=== PATIENT | female | born 1975 | race Caucasian/White ===

== ENCOUNTER → 2016-08-16 | Outpatient (CLI) | payer MEDICARE ==
[2016-08-16 11:11] LABS: CH 30.6; CHCM 32.7; HCT 43.8 % (34.0-46.0); HDW 2.21; HGB 13.9 gm/dL (11.4-16.0); MCH 29.9 pg (25.0-35.0); MCHC 31.8 g/dL (31.0-37.0); MCV 93.8 fL (80.0-100.0); Mean Platelet Volume 7.9; RBC 4.67 m/uL (3.80-5.40); RDW 12.3 % (11.5-15.5); WBC 6.7 k/uL (3.8-10.6)
[2016-08-16 11:31] LABS: ALT 29 U/L (9-52); AST 23 U/L (14-36); Alkaline Phosphatase 49 U/L (38-126); Anion Gap 10 mmol/L; Blood Urea Nitrogen 17 mg/dL (7-17); Calcium 9.1 mg/dL (8.4-10.2); Carbon Dioxide 28 mmol/L (22-30); Chloride 105 mmol/L (98-107); Cholesterol 201 mg/dL (<200); Glucose 92 mg/dL (74-99); HDL Cholesterol 67 mg/dL (40-60); Non-African American GFR(MDRD) >60 (>60 ml/min/1.73 sqM); Potassium 4.8 mmol/L (3.5-5.1); Sodium 143 mmol/L (137-145); Total Bilirubin 0.5 mg/dL (0.2-1.3); Total Protein 6.7 g/dL (6.3-8.2); Triglycerides 58 mg/dL (<150)
== END | disposition home or self-care (01) ==
LOC: LABWHC1 10:38
PROVIDERS: ATTEND Internal Medicine
DX: Z13.220 Encounter for screening for lipoid disorders (principal); Z13.29 Encounter for screening for other suspected endocrine disorder
CPT/HCPCS: 36415; 80053; 80061; 84439; 84443; 85027

== ENCOUNTER 2020-05-17 21:06 | Emergency (ER) | payer MEDICARE ==
[2020-05-17 21:17] VITALS: RESP 16; TEMP 98.9
[2020-05-17] MEDS ORDERED: LORazepam 2 MG/ML INJ IV STA (21:27)
[2020-05-17] MEDS ORDERED: SODIUM CHLORIDE 0.9% 1,000 ML IV ONE (21:27)
[2020-05-17 22:00] LABS: Amphetamine Screen,Urine Not Detected (NotDetected); Barbiturate Screen,Urine Not Detected (NotDetected); Benzodiazepines Screen,Urine Not Detected (NotDetected); Cocaine Screen,Urine Not Detected (NotDetected); Methadone Screen, Urine Not Detected (NotDetected); Opiate Screen,Urine Not Detected (NotDetected); Oxycodone Screen, Urine Not Detected (NotDetected); Phencyclidine Screen,Urine Not Detected (NotDetected); Tricyclic Antidepressant,Urine Not Detected (NotDetected); Urn Cannabinoid Scrn Detected (NotDetected)
--- NOTE | 2020-05-17 22:00 | ED ---
General Adult HPI - General Source: patient, EMS, RN notes reviewed, old records reviewed Mode of arrival: EMS Limitations: no limitations <Juan Stanley - Last Filed: 05/17/20 22:10> <Nadine Boone - Last Filed: 05/20/20 15:45> - General Chief complaint: Anxiety Stated complaint: anxiety Time Seen by Provider: 05/17/20 21:19 - History of Present Illness Initial comments: 44 year old female patient presented for anxiety. Patient reports that she ate two marijuanna laced brownies at 6 PM. States that since then she has been feeling very anxious and she had a little bit of nausea and vomiting earlier. Denies any other acute complaints this time. Systemic: Pt denies fatigue, fever/chills, rash. Pt denies weakness, night sweats, weight loss. Neuro: Pt denies headache, visual disturbances, syncope or pre-syncope. HEENT: Pt denies ocular discharge or irritation, otalgia, rhinorrhea, phar yngitis or notable lymphadenopathy. Cardiopulmonary: Pt denies chest pain, SOB, heart palpitations, dyspnea on exertion. Abdominal/GI: Pt denies abdominal pain, n/v/d. : Pt denies dysuria, burning w/ urination, frequency/urgency. Denies new onset urinary or bowel incontinence. MSK: Pt denies myalgia, loss of strength or function in extremities. Neuro: Pt denies new onset weakness, paresthesias. (Juan Stanley) - Related Data Home Medications Medication Instructions Recorded Confirmed Citalopram Hydrobromide [CeleXA] 40 mg PO DAILY 11/26/15 11/30/15 Multivitamins, Pediatric Chew 1 tab PO DAILY 11/26/15 11/30/15 [Poly--Noreen Chew] buPROPion HCL [Wellbutrin XL] 300 mg PO DAILY 11/26/15 11/30/15 Previous Rx's Medication Instructions Recorded Ibuprofen [Motrin] 600 mg PO Q6HR PRN #30 tab 11/30/15 Allergies Allergy/AdvReac Type Severity Reaction Status Date / Time No Known Allergies Allergy Verified 11/30/15 06:44 Review of Systems ROS Other: All systems not noted in ROS Statement are negative. <Juan Stanley - Last Filed: 05/17/20 22:10> ROS Other: All systems not noted in ROS Statement are negative. <Nadine Boone - Last Filed: 05/20/20 15:45> ROS Statement: Those systems with pertinent positive or pertinent negative responses have been documented in the HPI. Past Medical History Past Medical History: No Reported History Past Surgical History: Appendectomy Past Psychological History: Anxiety, Bipolar, Depression Smoking Status: Never smoker Past Alcohol Use History: Occasional Past Drug Use History: Marijuana <Juan Stanley - Last Filed: 05/17/20 22:10> General Exam Limitations: no limitations <Juan Stanley - Last Filed: 05/17/20 22:10> - General Exam Comments Initial Comments: Constitutional: NAD, AOX3, Pt has pleasant affect. HEENT: NC/AT, trachea midline, neck supple, no lymphadenopathy. External ears appear normal, without discharge. Mucous membranes moist. Eyes PERRLA, EOM intact. There is no scleral icterus. No pallor noted. Cardiopulmonary: RRR, no murmurs, rubs or gallops, no JVD noted. Lungs CTAB in anterior and posterior rosales. No peripheral edema. Abdominal exam: Abdomen soft and non-distended. Abdomen non-tender to palpation in all 4 quadrants. Bowel sounds active in LLQ. No hepatosplenomegaly. No ecchymosis Neuro: CN II-XII grossly intact. No nuchal rigidity. MSK: Full active ROM in upper and lower extremities, 5/5 stregnth. (Juan Stanley) Course Vital Signs 05/17/20 05/17/20 21:12 22:34 Temperature 98.9 F Pulse Rate 102 H 98 Respiratory 16 16 Rate Blood Pressure 125/86 127/75 O2 Sat by Pulse 97 97 Oximetry Medical Decision Making - EKG Data -: EKG Interpreted by Me (and Dr. Boone ) <Juan Stanley - Last Filed: 05/17/20 22:10> <Nadine Boone - Last Filed: 05/20/20 15:45> - Medical Decision Making 44-year-old female patient presented to ED for evaluation of anxiety after eating marijuana brownies. Denies any other current complaints. Patient was administered fluids and Ativan is feeling much improved. requesting discharge. Sisters with patient and will watch her. Patient advised to avoid any drugs in the future. Case discussed with Dr. Boone. (Juan Stanley) I was available for consultation in the emergency department. The history and physical exam were done by the midlevel provider. I was consulted for this patients care. I reviewed the case with the midlevel provider and based on their presentation of the patient, I agree with the assessment, medical decision making and plan of care as documented. Chart was dictated using ibeatyou dictation software. Attempts were made to correct any dictation errors however some typographical errors may persist. (Nadine Boone) - Lab Data Lab Results 05/17/20 05/17/20 Range/Units 21:35 21:35 Urine HCG, Qual Not Detected (Not Detectd) Urine Opiates Screen Not Detected (NotDetected) Ur Oxycodone Screen Not Detected (NotDetected) Urine Methadone Screen Not Detected (NotDetected) Ur Propoxyphene Screen Not Detected (NotDetected) Ur Barbiturates Screen Not Detected (NotDetected) U Tricyclic Antidepress Not Detected (NotDetected) Ur Phencyclidine Scrn Not Detected (NotDetected) Ur Amphetamines Screen Not Detected (NotDetected) U Methamphetamines Scrn Not Detected (NotDetected) U Benzodiazepines Scrn Not Detected (NotDetected) Urine Cocaine Screen Not Detected (NotDetected) U Marijuana (THC) Screen Detected H (NotDetected) - EKG Data EKG Comments: Ventricular rate 99, W[place] interval 184, QRS 94, QT/QTC 372/477. Normal sinus rhythm, normal EKG, no concern for acute ischemia. (Juan Stanley) Disposition Is patient prescribed a controlled substance at d/c from ED?: No <Juan Stanley - Last Filed: 05/17/20 22:10> <Nadine Boone - Last Filed: 05/20/20 15:45> Clinical Impression: Marijuana abuse, Anxiety Disposition: HOME SELF-CARE Condition: Stable Instructions (If sedation given, give patient instructions): Generalized Anxiety Disorder (ED) Additional Instructions: avoid all drugs in the future. Follow up with primary care provider tomorrow. Return to ER if any worsening symptoms. Referrals: Anita Eric MD [Primary Care Provider] - 1-2 days
[2020-05-17 22:35] VITALS: BP 127/75; PULSE 98
== END 2020-05-17 22:30 | disposition home or self-care (01) ==
LOC: EC 21:06
DX: F12.10 Cannabis abuse, uncomplicated (principal); F31.9 Bipolar disorder, unspecified; Z79.899 Other long term (current) drug therapy; Z90.49 Acquired absence of other specified parts of digestive tract
CPT/HCPCS: 93005; 81025; 80306; 99284; 96374; 96361; J2060

== ENCOUNTER → 2020-08-26 | Outpatient (CLI) | payer MEDICARE ==
--- NOTE | 2020-08-26 13:22 | MR ---
EXAMINATION TYPE: MR knee RT wo con DATE OF EXAM: 08/26/2020 COMPARISON: Outside radiograph 07/29/2020 HISTORY: 45-year-old female Right knee pain TECHNIQUE: Multiplanar, multisequence imaging of the right knee is performed without IV contrast. FINDINGS: There is increased signal along the ACL. Intact fibers are visualized. There may be a partial tear al marco the proximal half fibers, refer to coronal image 18. PCL, MCL, LCL complex are intact. Medial meniscus is intact. Overall medial compartment articular cartilage volume is maintained. There is abnormal signal within the anterior horn of the lateral meniscus with an adjacent 6 mm jacoby eniscal cyst, coronal image 11 and sagittal image 18. Lateral compartment articular cartilage volume is maintained. Mild thinning of the patellofemoral compartment articular cartilage without any focal cartilage defec ts. Extensor mechanism is intact. Trace joint effusion. Trace fluid seen extending between the semimembra nosus and medial head gastrocnemius compatible with trace early Mendez's cyst formation. Normal popliteal artery anatomy in muscle bulk. No suspicious bone marrow replacement. IMPRESSION: 1. Tear anterior horn lateral meniscus near the anterior root with a 6 mm adjacent parameniscal cyst. 2. Possible partial tear along the proximal half of the ACL fibers. No ACL rupture. 3. Trace early Mendez's cyst formation.
== END | disposition home or self-care (01) ==
LOC: RADMRIMAIN 11:11
PROVIDERS: ATTEND Orthopaedic Surgery
DX: S83.281A Other tear of lateral meniscus, current injury, right knee, initial encounter (principal)

== ENCOUNTER → 2020-09-17 | Outpatient (CLI) | payer MEDICARE ==
[2020-09-17 11:58] LABS: Potassium 4.1 mmol/L (3.5-5.1)
[2020-09-17 12:09] LABS: Basophils # (A) 0.1 k/uL (0-0.2); Basophils % (A) 1 %; Eosinophils # (A) 0.1 k/uL (0-0.7); Eosinophils % (A) 2 %; HCT 41.7 % (34.0-46.0); HGB 13.4 gm/dL (11.4-16.0); Lymphocytes # (A) 1.8 k/uL (1.0-4.8); Lymphocytes % (A) 25 %; MCH 30.1 pg (25.0-35.0); MCHC 32.1 g/dL (31.0-37.0); Mean Platelet Volume 9.1; Monocytes # (A) 0.2 k/uL (0-1.0); Monocytes % (A) 3 %; Neutrophils # (A) 4.8 k/uL (1.3-7.7); Neutrophils % (A) 68 %; Platelet Count 167 k/uL (150-450); RBC 4.43 m/uL (3.80-5.40); RDW 12.8 % (11.5-15.5)
== END | disposition home or self-care (01) ==
LOC: LABPAT 10:45
PROVIDERS: ATTEND Orthopaedic Surgery
DX: M23.91 Unspecified internal derangement of right knee (principal)
CPT/HCPCS: 36415; 80051; 85025

== ENCOUNTER 2020-09-30 09:37 | Day surgery (SDC) | payer MEDICARE ==
[2020-09-28 15:19] VITALS: BMI 25.5
--- NOTE | 2020-09-29 14:54 | HP ---
HISTORY AND PHYSICAL Surgery is scheduled for 09/30/2020 Rajni Martinez is a 45-year-old patient seen with progressive right knee pain. Options were discussed for treatment. She elected to proceed with arthroscopy. Consent was obtained. PAST MEDICAL HISTORY: Anxiety. PAST SURGICAL HISTORY: Noncontributory. DAILY MEDICATIONS: Wellbutrin. ALLERGIES: None. SOCIAL HISTORY: Denies tobacco use. PHYSICAL EVALUATION OF THE RIGHT KNEE: Range of motion is 0-120. Mild effusion. There is tenderness along the medial and lateral joint lines. Positive medial Ankit's. Positive lateral Ankit's. Her ligaments appear stable. Distal neurovascular exam is intact. Radiographs of the right knee reveal mild osteoarthritic changes. Right knee MRI revealed lateral meniscal tear and partial ACL tear. IMPRESSION: Internal derangement, right knee with lateral meniscal tear and partial ACL tear. PLAN: Right knee arthroscopy with partial meniscectomy and debridement. MMODL / IJN: [id number] /
[~2020-09-30 09:37] MED LIST: DEXAMETHASONE SOD PHOSPHATE 4 MG/ML 1 ML VIAL IV PRN; LACTATED RINGERS 1,000 ML IV SCH; LIDOCAINE 1% (10MG/ML) FOR IV START INTRADERMA PRN; ONDANSETRON 4 MG/2 ML VIAL IVP PRN
[2020-09-30] MEDS ORDERED: ONDANSETRON 4 MG/2 ML VIAL ONE (10:10)
[2020-09-30] MEDS ORDERED: BUPIVACAINE (PF) 0.25% 30 ML VIAL SQ ONE (11:59)
[2020-09-30] MEDS ORDERED: SUCCINYLCHOLINE CHLORIDE 100 MG/5 ML SYR IV ONE (12:04)
[2020-09-30] MEDS ORDERED: LIDOCAINE 1% INJ 10MG/ML (20 ML MDV) ONE (12:04)
[2020-09-30] MEDS ORDERED: fentaNYL (PF) 50 MCG/ML 2 ML AMP ONE (12:04)
[2020-09-30] MEDS ORDERED: PROPOFOL 10 MG/ML 20 ML VIAL IV ONE (12:04)
[2020-09-30] MEDS ORDERED: MIDAZOLAM 2 MG/2 ML VIAL ONE (12:04)
[2020-09-30] MEDS ORDERED: HYDROmorphone (PF) 1 MG/ML ONE (12:04)
--- NOTE | 2020-09-30 12:58 | P.OP ---
Date of Procedure: 09/30/20 Preoperative Diagnosis: Internal derangement right knee Postoperative Diagnosis: 1. Tear lateral meniscus right knee 2. Reactive synovitis medial, lateral and suprapatellar compartments right knee Procedure(s) Performed: 1. Arthroscopic partial medial meniscectomy right knee 2. Arthroscopic partial synovectomy medial, lateral and suprapatellar compartments right knee Anesthesia: KAIDENA, local Surgeon: Bryson Fitzgerald Estimated Blood Loss (ml): 7 Pathology: none sent Condition: stable Disposition: PACU Indications for Procedure: 45-year-old patient seen with progressive right knee pain. After treatment options were discussed, she elected to proceed with arthroscopy. Operative Findings: See description of procedure Description of Procedure: Patient was taken to the operative suite. Patient underwent a general an esthetic by the department of anesthesia. Patient was given preoperative antibiotics. The right lower extremity was placed in a well-padded arthroscopic leg chavez. The right leg was prepped and draped in the normal sterile orthopedic fashion. A lateral parapatellar and suprapatellar incision was made. Trochars were inserted. Arthroscopy was initiated. Suprapatellar pouch revealed diffuse thick reactive synovitis. The patellofemoral joint appeared to articulate congruently. There was grade 1 chondromalacia of the femoral sulcus with no osteochondral tears present. The scope was guided into the medial gutter. There were no loose bodies or plica identified. The scope was then guided into the medial compartment. A medial parapatellar incision was made. Trocar inserted followed by probe. The medial meniscus was probed and was found to be stable. There was no significant chondromalacia involving the medial arm and. There was thick reactive synovitis anteriorly. I introduced a motorized shaver and performed a partial synovectomy decompressing the thick reactive synovitis. The shaver was removed. There was good decompression of the synovitis. Scope and probe were then guided into the intercondylar notch. Cruciates were identified, probed and found to be stable. The scope and probe were then guided into lateral compartment. There was a small radial tear mid body lateral meniscus. There was no significant chondromalacia. There was thick reactive synovitis anteriorly. I performed a partial lateral meniscectomy getting down to stable meniscal tissue. I performed a partial synovectomy decompressing the reactive synovitis. The shaver was removed. The residual meniscus was probed and found to be stable. There was good decompression of the synovitis. The scope was in guided back into the suprapatellar compartment. I introduced a motorized shaver into the suprapatellar compartment. I performed a partial synovectomy decompressing the thick reactive synovitis. The shaver was removed. I took one more look on the entire knee, no residual debris. Instruments were now removed from the joint. The joint was infiltrated with .25% Marcaine. Steri-Strips were applied to the portal sites. Sterile dressings were applied. The patient was placed into a ARVIN hose. No tourniquet was utilized. The patient was awakened, transferred to a bed and taken to recovery stable satisfactory condition.
[2020-09-30 13:02] VITALS: TEMP 97.2
[2020-09-30 13:55] VITALS: RESP 16
[2020-09-30] MEDS ORDERED: HYDROcodone/APAP 5-325MG 1 EACH TAB ONE (14:04)
[2020-09-30] MEDS ORDERED: HYDROcodone/APAP 5-325MG 1 EACH TAB PO ONE (14:06)
[2020-09-30 14:23] VITALS: BP 131/78; PULSE 87
== END 2020-09-30 14:40 | disposition home or self-care (01) ==
LOC: OR 09:37
PROVIDERS: ATTEND Orthopaedic Surgery
DX: M23.200 Derangement of unspecified lateral meniscus due to old tear or injury, right knee (principal); M65.861 Other synovitis and tenosynovitis, right lower leg; F41.9 Anxiety disorder, unspecified; Z79.899 Other long term (current) drug therapy
CPT/HCPCS: 81025; 29881; J2250; J1100; J0690; J2405; J2001; J3010; J1170; J0330; J2704

== ENCOUNTER 2021-04-10 14:56 | Observation (INO) | payer MEDICARE ==
[2021-04-10 15:05] LABS: Glucose,Whole Blood 115 mg/dL (75-99)
--- NOTE | 2021-04-10 15:58 | ED ---
General Adult HPI - General Chief complaint: Altered Mental Status Stated complaint: Altered mental status Time Seen by Provider: 04/10/21 15:25 Source: patient, EMS, RN notes reviewed Mode of arrival: EMS Limitations: no limitations - History of Present Illness Initial comments: Patient is a pleasant 45-year-old female presenting to the emergency Department with possible change in mental status. Patient states she feels fine and has no complaints. There was question of patient may have fallen off the couch however patient denies this. Patient denies any overdose or taking additional medications. Patient does admit to taking alcohol last night. Patient denies any alcohol today. Patient denies drug use. Patient states she does not feel confused. Patient denies any trauma. - Related Data Home Medications Medication Instructions Recorded Confirmed Citalopram Hydrobromide [CeleXA] 40 mg PO DAILY 11/26/15 04/10/21 buPROPion XL [Wellbutrin Xl] 150 mg PO DAILY 09/28/20 04/10/21 Allergies Allergy/AdvReac Type Severity Reaction Status Date / Time No Known Allergies Allergy Verified 04/10/21 17:30 Review of Systems ROS Statement: Those systems with pertinent positive or pertinent negative responses have been documented in the HPI. ROS Other: All systems not noted in ROS Statement are negative. Constitutional: Denies: fever Eyes: Denies: eye pain ENT: Denies: ear pain Respiratory: Denies: cough Cardiovascular: Denies: chest pain Endocrine: Denies: fatigue Gastrointestinal: Denies: abdominal pain Genitourinary: Denies: dysuria Musculoskeletal: Denies: back pain Skin: Denies: rash Neurological: Denies: weakness Past Medical History Past Medical History: No Reported History History of Any Multi-Drug Resistant Organisms: None Reported Past Surgical History: Appendectomy Past Psychological History: Anxiety, Bipolar, Depression Smoking Status: Never smoker Past Alcohol Use History: None Reported Past Drug Use History: Marijuana General Exam Limitations: no limitations General appearance: in no apparent distress, other (Patient appears drowsy) Head exam: Present: atraumatic, normocephalic Eye exam: Present: normal appearance, PERRL, EOMI. Absent: nystagmus ENT exam: Present: normal oropharynx Neck exam: Present: normal inspection, tenderness (Minimal diffuse tenderness) Respiratory exam: Present: normal lung sounds bilaterally Cardiovascular Exam: Present: regular rate, normal rhythm GI/Abdominal exam: Present: soft. Absent: tenderness Extremities exam: Present: normal inspection Neurological exam: Present: oriented X3, CN II-XII intact. Absent: motor sensory deficit Expanded Neurological exam: Present: protecting the airway Patient oriented to: Present: person, place, time Cranial nerves: EOM's Intact: Normal Motor strength exam: RUE: 5, LUE: 5, RLE: 5, LLE: 5 Eye Response: (4) open spontaneously Motor Response: (6) obeys commands Verbal Response: (5) oriented Psychiatric exam: Present: normal affect, normal mood Skin exam: Present: normal color Course Vital Signs 04/10/21 04/10/21 04/10/21 14:58 15:58 17:00 Temperature 97.5 F L Pulse Rate 105 H 103 H 105 H Respiratory 20 18 18 Rate Blood Pressure 136/86 130/76 140/81 O2 Sat by Pulse 99 100 100 Oximetry 04/10/21 04/10/21 18:16 19:18 Temperature Pulse Rate 104 H 100 Respiratory 18 18 Rate Blood Pressure 149/82 144/87 O2 Sat by Pulse 100 100 Oximetry - Reevaluation(s) Reevaluation #1: 04/10/21 15:57 Nursing staff did speak with who stated patient did take 2 Seroquel yesterday evening and was drinking wine. He states patient was still drowsy around 1:30 today when he was trying to wake her up. EKG Findings - EKG Comments: EKG Findings:: Sinus tachycardia with rate of 102. MT 170. QRS 94. QT 364. QTC 474. Normal axis. Normal QRS. No acute ST change. Medical Decision Making - Medical Decision Making Patient reevaluated several times. states patient has been hallucinating and talking to people that are not there. Patient remains somewhat drowsy appearing. Patient does admit to taking one of her sons medication also to try to help her sleep yesterday. Case was discussed with Dr. Treadwell, who will admit covering Dr. Eric. Consult will be placed for psychiatry. Additional tests will be ordered. - Lab Data Result diagrams: 04/10/21 15:56 04/10/21 15:56 Lab Results 04/10/21 04/10/21 04/10/21 Range/Units 15:03 15:56 15:56 WBC 9.2 (3.8-10.6) k/uL RBC 4.19 (3.80-5.40) m/uL Hgb 13.5 (11.4-16.0) gm/dL Hct 40.4 (34.0-46.0) % MCV 96.3 (80.0-100.0) fL MCH 32.3 (25.0-35.0) pg MCHC 33.5 (31.0-37.0) g/dL RDW 12.9 (11.5-15.5) % Plt Count 145 L (150-450) k/uL MPV 9.2 Neutrophils % 85 % Lymphocytes % 11 % Monocytes % 2 % Eosinophils % 1 % Basophils % 0 % Neutrophils # 7.8 H (1.3-7.7) k/uL Lymphocytes # 1.0 (1.0-4.8) k/uL Monocytes # 0.2 (0-1.0) k/uL Eosinophils # 0.1 (0-0.7) k/uL Basophils # 0.0 (0-0.2) k/uL PT 10.7 (9.0-12.0) sec INR 1.0 (<1.2) APTT 19.0 L (22.0-30.0) sec Sodium (137-145) mmol/L Potassium (3.5-5.1) mmol/L Chloride (98-107) mmol/L Carbon Dioxide (22-30) mmol/L Anion Gap mmol/L BUN (7-17) mg/dL Creatinine (0.52-1.04) mg/dL Est GFR (CKD-EPI)AfAm (>60 ml/min/1.73 sqM) Est GFR (CKD-EPI)NonAf (>60 ml/min/1.73 sqM) Glucose (74-99) mg/dL POC Glucose (mg/dL) 115 H (75-99) mg/dL POC Glu Real Estate Assessor ID Dmitry Broussard Calcium (8.4-10.2) mg/dL Total Bilirubin (0.2-1.3) mg/dL AST (14-36) U/L ALT (4-34) U/L Alkaline Phosphatase (38-126) U/L Creatine Kinase (30-135) U/L Troponin I (0.000-0.034) ng/mL Total Protein (6.3-8.2) g/dL Albumin (3.5-5.0) g/dL Urine Color Urine Appearance (Clear) Urine pH (5.0-8.0) Ur Specific [place] (1.001-1.035) Urine Protein (Negative) Urine Glucose (UA) (Negative) Urine Ketones (Negative) Urine Blood (Negative) Urine Nitrite (Negative) Urine Bilirubin (Negative) Urine Urobilinogen (<2.0) mg/dL Ur Leukocyte Esterase (Negative) Urine RBC (0-5) /hpf Urine WBC (0-5) /hpf Ur Squamous Epith Cells (0-4) /hpf Hyaline Casts (0-2) /lpf Urine Mucus (None) /hpf Urine Opiates Screen (NotDetected) Ur Oxycodone Screen (NotDetected) Urine Methadone Screen (NotDetected) Ur Propoxyphene Screen (NotDetected) Ur Barbiturates Screen (NotDetected) U Tricyclic Antidepress (NotDetected) Ur Phencyclidine Scrn (NotDetected) Ur Amphetamines Screen (NotDetected) U Methamphetamines Scrn (NotDetected) U Benzodiazepines Scrn (NotDetected) Urine Cocaine Screen (NotDetected) U Marijuana (THC) Screen (NotDetected) Serum Alcohol mg/dL 04/10/21 04/10/21 04/10/21 Range/Units 15:56 15:56 18:20 WBC (3.8-10.6) k/uL RBC (3.80-5.40) m/uL Hgb (11.4-16.0) gm/dL Hct (34.0-46.0) % MCV (80.0-100.0) fL MCH (25.0-35.0) pg MCHC (31.0-37.0) g/dL RDW (11.5-15.5) % Plt Count (150-450) k/uL MPV Neutrophils % % Lymphocytes % % Monocytes % % Eosinophils % % Basophils % % Neutrophils # (1.3-7.7) k/uL Lymphocytes # (1.0-4.8) k/uL Monocytes # (0-1.0) k/uL Eosinophils # (0-0.7) k/uL Basophils # (0-0.2) k/uL PT (9.0-12.0) sec INR (<1.2) APTT (22.0-30.0) sec Sodium 139 (137-145) mmol/L Potassium 3.4 L (3.5-5.1) mmol/L Chloride 110 H (98-107) mmol/L Carbon Dioxide 21 L (22-30) mmol/L Anion Gap 8 mmol/L BUN 12 (7-17) mg/dL Creatinine 0.77 (0.52-1.04) mg/dL Est GFR (CKD-EPI)AfAm >90 (>60 ml/min/1.73 sqM) Est GFR (CKD-EPI)NonAf >90 (>60 ml/min/1.73 sqM) Glucose 115 H (74-99) mg/dL POC Glucose (mg/dL) (75-99) mg/dL POC Glu Real Estate Assessor ID Calcium 8.8 (8.4-10.2) mg/dL Total Bilirubin 0.6 (0.2-1.3) mg/dL AST 19 (14-36) U/L ALT 10 (4-34) U/L Alkaline Phosphatase 55 (38-126) U/L Creatine Kinase 113 (30-135) U/L Troponin I <0.012 (0.000-0.034) ng/mL Total Protein 6.5 (6.3-8.2) g/dL Albumin 4.0 (3.5-5.0) g/dL Urine Color Yellow Urine Appearance Cloudy H (Clear) Urine pH 6.0 (5.0-8.0) Ur Specific [place] 1.031 (1.001-1.035) Urine Protein 2+ H (Negative) Urine Glucose (UA) Negative (Negative) Urine Ketones Trace H (Negative) Urine Blood Large H (Negative) Urine Nitrite Negative (Negative) Urine Bilirubin Negative (Negative) Urine Urobilinogen <2.0 (<2.0) mg/dL Ur Leukocyte Esterase Moderate H (Negative) Urine RBC 12 H (0-5) /hpf Urine WBC 8 H (0-5) /hpf Ur Squamous Epith Cells 2 (0-4) /hpf Hyaline Casts 1 (0-2) /lpf Urine Mucus Rare H (None) /hpf Urine Opiates Screen Detected H (NotDetected) Ur Oxycodone Screen Detected H (NotDetected) Urine Methadone Screen Not Detected (NotDetected) Ur Propoxyphene Screen Not Detected (NotDetected) Ur Barbiturates Screen Not Detected (NotDetected) U Tricyclic Antidepress Detected H (NotDetected) Ur Phencyclidine Scrn Not Detected (NotDetected) Ur Amphetamines Screen Not Detected (NotDetected) U Methamphetamines Scrn Not Detected (NotDetected) U Benzodiazepines Scrn Not Detected (NotDetected) Urine Cocaine Screen Not Detected (NotDetected) U Marijuana (THC) Screen Not Detected (NotDetected) Serum Alcohol <10 mg/dL - Radiology Data Radiology results: report reviewed (CT brain reveals no acute abnormality. CT C-spine shows minor degenerative changes.), image reviewed (Chest x-ray shows no acute process) Disposition Clinical Impression: Altered mental status Disposition: ADMITTED IP TO THIS [facility] Is patient prescribed a controlled substance at d/c from ED?: No Referrals: Anita Eric MD [Primary Care Provider] - 1-2 days Decision Time: 20:04
[2021-04-10 16:04] LABS: Basophils % (A) 0 %; Eosinophils # (A) 0.1 k/uL (0-0.7); Eosinophils % (A) 1 %; HCT 40.4 % (34.0-46.0); HGB 13.5 gm/dL (11.4-16.0); Lymphocytes % (A) 11 %; MCH 32.3 pg (25.0-35.0); MCHC 33.5 g/dL (31.0-37.0); MCV 96.3 fL (80.0-100.0); Mean Platelet Volume 9.2; Monocytes # (A) 0.2 k/uL (0-1.0); Monocytes % (A) 2 %; Neutrophils # (A) 7.8 k/uL (1.3-7.7); Neutrophils % (A) 85 %; Platelet Count 145 k/uL (150-450); RBC 4.19 m/uL (3.80-5.40); RDW 12.9 % (11.5-15.5); WBC 9.2 k/uL (3.8-10.6)
[2021-04-10 16:19] LABS: ALT 10 U/L (4-34); AST 19 U/L (14-36); African American GFR (CKD) >90 (>60 ml/min/1.73 sqM); Alcohol <10 mg/dL; Alkaline Phosphatase 55 U/L (38-126); Anion Gap 8 mmol/L; Blood Urea Nitrogen 12 mg/dL (7-17); Calcium 8.8 mg/dL (8.4-10.2); Carbon Dioxide 21 mmol/L (22-30); Chloride 110 mmol/L (98-107); Creatine Kinase 113 U/L (30-135); Glucose 115 mg/dL (74-99); Non-African American GFR(CKD) >90 (>60 ml/min/1.73 sqM); Potassium 3.4 mmol/L (3.5-5.1); Sodium 139 mmol/L (137-145); Total Bilirubin 0.6 mg/dL (0.2-1.3); Total Protein 6.5 g/dL (6.3-8.2)
--- NOTE | 2021-04-10 16:22 | CT ---
EXAMINATION TYPE: CT brain domenica wo con DATE OF EXAM: 04/10/2021 COMPARISON: None HISTORY: Altered mental status. Found on floor. CT DLP: 1291.9 mGycm Automated exposure control for dose reduction was used. Ventricles have normal size. There is no mass effect nor midline shift. There is no sign of intracran ial hemorrhage. Calvarium is intact. Cervical vertebra have normal alignment. There is slight narrowing of C5-6 disc space with minimal sp urring. Posterior elements are intact. Facet joints are intact. Prevertebral soft tissues are intact. I see no bony destructive process. IMPRESSION: Minor degenerative disc changes at C5-6. No fracture. Negative CT scan of the brain.
[2021-04-10 16:23] LABS: Prothrombin Time 10.7 sec (9.0-12.0)
--- NOTE | 2021-04-10 17:51 | XR ---
EXAMINATION TYPE: XR chest 2V DATE OF EXAM: 04/10/2021 COMPARISON: NONE HISTORY: Chest pain TECHNIQUE: 2 views FINDINGS: Heart and mediastinum are normal. Lungs are clear. Diaphragm is normal. Bony thorax is inta ct. There are chest leads. IMPRESSION: Normal chest.
[2021-04-10 18:50] LABS: Appearance,Urine Cloudy (Clear); Bilirubin,Urine Negative (Negative); Blood,Urine Large (Negative); Color,Urine Yellow; Glucose,Urine (UA) Negative (Negative); Hyaline Casts,Urine 1 /lpf (0-2); Ketones,Urine Trace (Negative); Leukocyte Esterase,Urine Moderate (Negative); Mucus,Urine Rare /hpf; Nitrite,Urine Negative (Negative); Protein,Urine 2+ (Negative); RBC,Urine 12 /hpf (0-5); Specific Gravity,Urine 1.031 (1.001-1.035); Squamous Epithelial Cell,Urine 2 /hpf (0-4); Urobilinogen,Urine <2.0 mg/dL (<2.0); WBC,Urine 8 /hpf (0-5)
[2021-04-10 19:14] LABS: Amphetamine Screen,Urine Not Detected (NotDetected); Barbiturate Screen,Urine Not Detected (NotDetected); Benzodiazepines Screen,Urine Not Detected (NotDetected); Cocaine Screen,Urine Not Detected (NotDetected); Methadone Screen, Urine Not Detected (NotDetected); Opiate Screen,Urine Detected (NotDetected); Oxycodone Screen, Urine Detected (NotDetected); Phencyclidine Screen,Urine Not Detected (NotDetected); Tricyclic Antidepressant,Urine Detected (NotDetected); Urn Cannabinoid Scrn Not Detected (NotDetected)
[2021-04-10] MEDS ORDERED: NALOXONE 0.4 MG/ML 1 ML VIAL IV PRN (20:04)
[2021-04-10 21:22] LABS: Acetaminophen <10.0 ug/mL; Salicylate <1.0 mg/dL
[2021-04-11] MEDS ORDERED: MAG HYDROX/AL HYDROX/SIMETH 30 ML CUP PO PRN (15:25)
[2021-04-11] MEDS: FAMOTIDINE 20 MG TAB PO SCH ×2 (16:22→22:15)
[2021-04-11] MEDS: buPROPion XL 150 MG TAB.ER.24H PO SCH (16:22)
--- NOTE | 2021-04-11 16:28 | P.HPIM ---
History of Present Illness H&P Date: 04/11/21 Chief Complaint: Altered mental status Patient is a 45-year-old female with a known history of anxiety/depression and bipolar disorder and history of marijuana use was brought to the hospital due to altered mental status. Apparently patient has taken insulin dose of medication. Her Concerned that she took his medications including Seroquel and and Percocet which are prescribed in 2017. Patient also admits to taking alcohol night prior. Denied any complaints of chest pain or shortness of breath. No headache or dizziness or lightheadedness. No neck stiffness. Patient has been afebrile. Denied any recent illnesses. No history of trauma or fall. CT head and cervical spine showed minor degenerative disc changes at the C5-C6 and no fracture. Negative CT head. Chest x-ray showed normal chest. EKG showed sinus tachycardia Laboratory data showed pelvis E9.2 hemoglobin 13.5 and platelets 145 Sodium 139 potassium 3.4 chloride 110 bicarb is 21 Urinalysis showed cloudy with large blood, moderate leukocyte esterase RV systolic WBC is 8. Patient denied any complaints of dysuria or hematuria. UDS is positive for opiates, oxycodone, tricyclic antidepressants Serum alcohol less than 10 Review of Systems Constitutional: Patient denies any fever or chills . No generalized weakness or weight loss. Abdomen: Patient denied nausea vomiting and diarrhea and abdominal pain. Cardiovascular: Patient denies any chest pain or short of breath no palpitations. Respiratory: patient denied any cough is from production. No shortness of breath Neurologic: Patient denied any numbness or tingling headache. Musculoskeletal: Patient denies any complaints of joint swelling or deformity. Skin: Negative Psychiatric: Negative Endocrine: No heat or cold intolerance. No recent weight gain. Genitourinary: No dysuria or hematuria. All other 14 point ROS negative except the above Past Medical History Past Medical History: No Reported History History of Any Multi-Drug Resistant Organisms: None Reported Past Surgical History: Appendectomy, Back Surgery Additional Past Surgical History / Comment(s): back surgery involving metal, unclear on what kind Past Anesthesia/Blood Transfusion Reactions: No Reported Reaction Past Psychological History: Anxiety, Bipolar, Depression Smoking Status: Never smoker Past Alcohol Use History: None Reported Past Drug Use History: Marijuana Medications and Allergies Home Medications Medication Instructions Recorded Confirmed Type Citalopram Hydrobromide [CeleXA] 40 mg PO DAILY 11/26/15 04/10/21 History buPROPion XL [Wellbutrin Xl] 150 mg PO DAILY 09/28/20 04/10/21 History Allergies Allergy/AdvReac Type Severity Reaction Status Date / Time No Known Allergies Allergy Verified 04/10/21 17:30 Physical Exam Vitals: Vital Signs Temp Pulse Pulse Resp BP BP Pulse Ox 04/11/21 04:49 98.1 F 82 16 116/70 98 04/10/21 21:27 97.3 F L 104 H 16 131/84 99 04/10/21 20:37 98.8 F 105 H 18 123/98 97 04/10/21 19:18 100 18 144/87 100 04/10/21 18:16 104 H 18 149/82 100 04/10/21 17:00 105 H 18 140/81 100 04/10/21 15:58 103 H 18 130/76 100 04/10/21 14:58 97.5 F L 105 H 20 136/86 99 Intake and Output 04/10/21 04/11/21 04/11/21 22:59 06:59 14:59 Intake Total 540 Balance 540 Intake: Oral 540 Other: # Voids 2 PHYSICAL EXAMINATION: Patient is lying in the bed comfortably, no acute distress, awake alert and oriented. appears to be drowsy. HEENT: Normocephalic. Neck is supple. Pupils reactive. Nostrils clear. Oral cavity is moist. Neck reveals no JVD, carotid bruits, or thyromegaly. CHEST EXAMINATION: Trachea is central. Symmetrical expansion. Lung rosales clear to auscultation and percussion. CARDIAC: Normal S1, S2 with no gallops. No murmurs ABDOMEN: Soft. Bowel sounds normal. No organomegaly. No abdominal bruits. Extremities: reveal no edema. No clubbing or cyanosis Neurologically awake, alert, oriented x3 with well-coordinated movements. No focal deficits noted Skin: No rash or skin lesions. Psychiatric: Coperative. Nonsuicidal Musculoskeletal: No joint swelling or deformity. Normal range of motion. Results CBC & Chem 7: 04/10/21 15:56 04/10/21 15:56 Labs: Abnormal Lab Results - Last 24 Hours (Table) 04/10/21 04/10/21 04/10/21 Range/Units 15:03 15:56 15:56 Plt Count 145 L (150-450) k/uL Neutrophils # 7.8 H (1.3-7.7) k/uL APTT 19.0 L (22.0-30.0) sec Potassium (3.5-5.1) mmol/L Chloride (98-107) mmol/L Carbon Dioxide (22-30) mmol/L Glucose (74-99) mg/dL POC Glucose (mg/dL) 115 H (75-99) mg/dL Urine Appearance (Clear) Urine Protein (Negative) Urine Ketones (Negative) Urine Blood (Negative) Ur Leukocyte Esterase (Negative) Urine RBC (0-5) /hpf Urine WBC (0-5) /hpf Urine Mucus (None) /hpf Urine Opiates Screen (NotDetected) Ur Oxycodone Screen (NotDetected) U Tricyclic Antidepress (NotDetected) 04/10/21 04/10/21 Range/Units 15:56 18:20 Plt Count (150-450) k/uL Neutrophils # (1.3-7.7) k/uL APTT (22.0-30.0) sec Potassium 3.4 L (3.5-5.1) mmol/L Chloride 110 H (98-107) mmol/L Carbon Dioxide 21 L (22-30) mmol/L Glucose 115 H (74-99) mg/dL POC Glucose (mg/dL) (75-99) mg/dL Urine Appearance Cloudy H (Clear) Urine Protein 2+ H (Negative) Urine Ketones Trace H (Negative) Urine Blood Large H (Negative) Ur Leukocyte Esterase Moderate H (Negative) Urine RBC 12 H (0-5) /hpf Urine WBC 8 H (0-5) /hpf Urine Mucus Rare H (None) /hpf Urine Opiates Screen Detected H (NotDetected) Ur Oxycodone Screen Detected H (NotDetected) U Tricyclic Antidepress Detected H (NotDetected) Thrombosis Risk Factor Assmnt - DVT/VTE Prophylaxis DVT/VTE Prophylaxis: Pharmacologic Prophylaxis ordered - Choose All That Apply Any of the Below Risk Factors Present?: Yes Each Factor Represents 1 point: Age 41-60 years, Obesity (BMI >25) Other congenital or acquired thrombophilia - If yes, enter type in comment: No Thrombosis Risk Factor Assessment Total Risk Factor Score: 2 Thrombosis Risk Factor Assessment Level: Low Risk Assessment and Plan Assessment: Altered mental status likely due to medication overdose. Improving now Anxiety/depression and bipolar disorder UDS is positive for opiates, oxycodone and tricyclic antidepressants Hypokalemia DVT prophylaxis with heparin subcu Plan: Patient be continued on IV hydration and continue with symptomatic management. Patient otherwise denied any suicidal ideation. Psychiatry was consulted for evaluation. We will continue to follow.
[2021-04-11 21:04] VITALS: RESP 18
[2021-04-12 04:56] VITALS: BP 120/65; PULSE 70; TEMP 98
[2021-04-12] MEDS: FAMOTIDINE 20 MG TAB PO SCH (08:28)
[2021-04-12] MEDS: buPROPion XL 150 MG TAB.ER.24H PO SCH (08:28)
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
--- NOTE | 2021-04-12 12:26 | P.PN ---
Progress Note - Text Progress Note Date: 04/12/21 Interval History: Patient was seen resting in her chair and was directable and agreeable to speak with the caption writer. The patient admits that she overdosed due to feeling overwhelmed with ongoing stressors, in particular her relationship with her . She does describe a significant history of depression and anxiety has been worsening over the past year. Furthermore, the patient does report prior attempts at suicide. She describes in detail a significant history of trauma and describes a significant history of self-harm behavior, mood lability, mood dysregulation, and low self-esteem. After significant discussion with the patient, she is willing to come into the psychiatric unit voluntarily for further evaluation and treatment. Mental Status Exam: General Appearance: Patient appears to be stated age is alert, directable, and cooperative. Fair hygiene and grooming. Behavior: Patient is calmly seated without any agitated behavior. Speech: Patient's speech is fluent and nonpressured. Mood/Affect: Mood is anxious. Affect is tearful. Suicidality/Homicidality: Patient denies having any suicidal or homicidal ideation intent or plan. Perceptions: Patient denies any visual hallucinations and denies any auditory hallucinations Though content/process: There is no evidence of any delusional thought content and thought process is linear and goal-directed. Memory and concentration: AOX3, grossly intact for the purposes of this session Judgment and insight: Improving mildly Vital Signs Temp 98 F 04/12/21 04:54 Pulse 70 04/12/21 04:54 Resp 18 04/12/21 04:54 BP 120/65 04/12/21 04:54 Pulse Ox 99 04/12/21 04:54 Intake & Output 04/11/21 04/12/21 04/12/21 18:59 06:59 18:59 Intake Total 890 Balance 890 Intake: Oral 890 Other: # Voids 1 2 Assessment Major depressive disorder, recurrent, severe Cluster B personality disorder Posttraumatic stress disorder Plan: -Patient is willing to come to the psychiatric unit voluntarily. When medically stable, she is cleared for admission to the psychiatric unit for management of depression with a suicide attempt. -Medications: We will hold Wellbutrin for now. We will continue Celexa 40 mg by mouth daily for management of depression/anxiety/PTSD -Psychiatry will sign off at this time and we will treat the patient when she is transferred to our unit.
[2021-04-12 16:29] LABS: African American GFR (CKD) 101.8 (60.0-200.0); Anion Gap 8.6 mmol/L (4.00-12.00); Calcium 9.2 mg/dL (8.7-10.3); Carbon Dioxide 24.4 mmol/L (21.6-31.8); Non-African American GFR(CKD) 87.8 (60.0-200.0); Potassium 4.4 mmol/L (3.5-5.5)
== END 2021-04-12 14:25 | disposition home or self-care (01) ==
LOC: EC 14:56 → 5NMEDONC 20:04
PROVIDERS: ADMIT Internal Medicine; ATTEND Internal Medicine
DX: F33.2 Major depressive disorder, recurrent severe without psychotic features (principal); R41.82 Altered mental status, unspecified; T50.901A Poisoning by unspecified drugs, medicaments and biological substances, accidental (unintentional), initial encounter; Z79.899 Other long term (current) drug therapy; F43.10 Post-traumatic stress disorder, unspecified; Z90.49 Acquired absence of other specified parts of digestive tract; M50.322 Other cervical disc degeneration at C5-C6 level; Z98.890 Other specified postprocedural states; E66.9 Obesity, unspecified; Z68.27 Body mass index [BMI] 27.0-27.9, adult; E87.6 Hypokalemia; F10.239 Alcohol dependence with withdrawal, unspecified; F60.89 Other specific personality disorders; G25.9 Extrapyramidal and movement disorder, unspecified; Z91.5 Personal history of self-harm
CPT/HCPCS: 99285; G0378 ×3; 36415; 70450; 71046; 72125; 80048; 80053; 80143; 80179; 80306; 80320; 81001; 82140; 82550; 84484; 85025; 85610; 85730; 87635; 93005

== ENCOUNTER 2021-04-12 13:31 | Inpatient (IN) | payer MEDICARE ==
[2021-04-12] MEDS ORDERED: MAGNESIUM HYDROXIDE 2,400 MG/10 ML CUP PO PRN (13:59)
[2021-04-12] MEDS ORDERED: LORazepam 1 MG TAB PO PRN (13:59)
[2021-04-12] MEDS ORDERED: ACETAMINOPHEN TAB 325 MG TAB PO PRN (13:59)
[2021-04-12] MEDS ORDERED: MAG HYDROX/AL HYDROX/SIMETH 30 ML CUP PO PRN (13:59)
[2021-04-12] MEDS ORDERED: haloperidoL 1 MG TAB PO PRN (14:02)
[2021-04-12] MEDS ORDERED: HALOPERIDOL LACTATE 5 MG/ML 1 ML VIAL IM PRN (14:02)
[2021-04-12] MEDS ORDERED: LORazepam 2 MG/ML INJ IM PRN (14:02)
[2021-04-13] MEDS: CITALOPRAM HYDROBROMIDE 20 MG TAB PO SCH (08:29)
[2021-04-13] MEDS ORDERED: ARIPiprazole 5 MG TAB PO STA (10:46)
--- NOTE | 2021-04-13 11:56 | P.HP ---
Psychiatric H&P - . H&P Date: 04/13/21 History & Physical: Allergies Allergy/AdvReac Type Severity Reaction Status Date / Time No Known Allergies Allergy Verified 04/10/21 17:30 Vital Signs Temp 97.6 F 04/13/21 06:55 Pulse 73 04/13/21 06:55 Resp 14 04/13/21 06:55 BP 121/67 04/13/21 06:55 Pulse Ox 98 04/12/21 14:30 Intake & Output 04/12/21 04/13/21 04/13/21 18:59 06:59 18:59 Weight 78 kg Laboratory Last Values TSH 0.867 mIU/L (0.465-4.680) 04/10/21 15:56 04/13/21 11:56 IDENTIFYING DATA: Patient is a , unemployed, 45-year-old female who was admitted for suicidal ideation with attempt by intentional overdose. HPI: Patient presented to the hospital on 04/11/21, was brought to the emergency Department for altered mental status after the patient had an intentional overdose on Seroquel, pain medication, and alcohol. The patient was subsequently admitted to the medical floor and was stabilized. She was then transferred to the psychiatric unit for evaluation and treatment of worsening depression and suicidality. The patinet reports due to Covid restrictions and the nature of the pandemic her mental health began to decline. Upon admission to the unit, the patient reports that she is feeling much better has an understanding as to why she overdosed. The patient reports that she has been feeling increasingly depressed and anxious over the past year. She reports that this stems from her relationship with her . She states that she is no longer in love with her . Furthermore, the patient does report that over the past year she has had low self-esteem, inability to regulate her mood, and self harming urges. She does report that she has previously attempted suicide in the past by overdose 1 year ago. Prior to her presentation to this hospital, the patient was on a regimen of Celexa and Wellbutrin. She was tolerating days medications well but reports that she has no significant improvement in regards to her mood and anxiety. The patient does not endorse any significant history of psychosis. She reports no history of auditory or visual hallucinations. She reports no paranoia or other delusions. He does report that she has had some erotomanic fantasies but states that she is never acted on them or had them actually play out so as to interfere with her daily living. She reports no significant history of bipolar disorder. She denies any manic episodes. PAST PSYCHIATRIC HISTORY: Patient states that she has a history of depression and anxiety and is open with [facility]. The patient is currently on a regimen of Celexa and Wellbutrin. She has also previously trialed Seroquel. The patient does report multiple psychiatric hospitalizations in the distant past. She does report that she attempted suicide 1 year ago. PMH: Past Medical History: No Reported History History of Any Multi-Drug Resistant Organisms: None Reported Past Surgical History: Appendectomy, Back Surgery Additional Past Surgical History / Comment(s): back surgery involving metal, unclear on what kind Past Anesthesia/Blood Transfusion Reactions: No Reported Reaction Past Psychological History: Anxiety, Bipolar, Depression Smoking Status: Never smoker Past Alcohol Use History: None Reported Past Drug Use History: Marijuana ALLERGIES: NO KNOWN DRUG ALLERGIES CHEMICAL DEPENDENCY HISTORY: The patient endorses significant history of alcohol use disorder. She reports that she has been drinking up to one bottle of wine per night. FAMILY PSYCHIATRIC/SUBSTANCE USE HISTORY: denies SOCIAL HISTORY: Patient lives with her and has 2 children ages 10 and 14. MENTAL STATUS EXAM: General Appearance: Patient appears to be stated age is alert, directable, and attempts to cooperate. Patient appears to have good hygiene and grooming. Behavior: Patient is seated without any agitated behavior. Psychomotor activity is normal. Eye contact is appropriate. Speech: Patient's speech is fluent and nonpressured. Mood/Affect: Patient reports their mood is depressed, affect is congruent and constricted. Suicidality/Homicidality: Patient denies having any homicidal ideation intent or plan. Denies any suicidal ideations intent or plan Perceptions: Patient denies any visual hallucinations and denies any auditory hallucinations Though content/process: There is no evidence of any delusional thought content and thought process is linear and goal-directed. Memory and concentration: AOX3, grossly intact for the purposes of this session. Can spell "WORLD" backwards Judgment and insight: Mildly improving STRENGTHS/WEAKNESSES: strength is that patient is resilient, as family oriented, and has stable housing. Weakness is that patient has poor coping skills INTELLECT: average IMPRESSIONS: Major depressive disorder, recurrent, severe Cluster B personality disorder Posttraumatic stress disorder PLAN: -Patient is admitted under voluntary status to MHU for stabilization of psychiatric symptoms and safety. Patient signed adult voluntary form and medication consent and is placed in patient's chart. -Medications : Will start patient on Celexa 40 mg by mouth daily for depression/anxiety Discontinue Wellbutrin due to concern for over activation/anxiety Start Abilify 5 mg by mouth daily for mood augmentation/stabilization -Ativan and Haldol PRN for agitation/aggression -Patient was counselled on substance abuse and desired to cut back on use -Patient was informed of the risks, benefits and side effects of the medication and patient verbally consented to taking the medications. Patient signed med consent form and was placed in chart. -Internal Medicine consult to perform medical evaluation and physical. -SW on board for discharge planning. Encourage patient to participate in groups to work on coping skills.
[2021-04-13 12:04] LABS: Chol/HDL Ratio 2.98; LDL Cholesterol,Calculated 104.4 mg/dL (0.0-131.0); VLDL Calculation 12.6 mg/dL (5.00-40.00)
[2021-04-13 13:46] LABS: Hemoglobin A1C 4.4 % (4.0-6.0)
--- NOTE | 2021-04-13 21:53 | P.MDCNMH ---
History of Present Illness H&P Date: 04/13/21 Chief Complaint: Depression Patient is a 45-year-old female with a known history of anxiety/depression and bipolar disorder and history of marijuana use was brought to the hospital due to altered mental status. Apparently patient has taken insulin dose of medication. Her Concerned that she took his medications including Seroquel and and Percocet which are prescribed in 2017. Patient also admits to taking alcohol night prior. Patient expresses to the psychiatrist that she is very depressed and especially her relationship with her and tried to commit suicide. Patient does have history of prior suicide attempt. Patient did agree to come to inpatient psychiatric unit for further management. Denied any complaints of chest pain or shortness of breath. No headache or dizziness or lightheadedness. No neck stiffness. Patient has been afebrile. D enied any recent illnesses. No history of trauma or fall. CT head and cervical spine showed minor degenerative disc changes at the C5-C6 and no fracture. Negative CT head. Chest x-ray showed normal chest. EKG showed sinus tachycardia Review of Systems Constitutional: Patient denies any fever or chills . No generalized weakness or weight loss. Abdomen: Patient denied nausea vomiting and diarrhea and abdominal pain. Cardiovascular: Patient denies any chest pain or short of breath no palpitations. Respiratory: patient denied any cough or sputum production. No shortness of breath Neurologic: Patient denied any numbness or tingling headache. Musculoskeletal: Patient denies any complaints of joint swelling or deformity. Skin: Negative Psychiatric: Negative Endocrine: No heat or cold intolerance. No recent weight gain. Genitourinary: No dysuria or hematuria. All other 14 point ROS negative except the above Past Medical History Past Medical History: No Reported History History of Any Multi-Drug Resistant Organisms: None Reported Past Surgical History: Appendectomy, Back Surgery, Tubal Ligation Additional Past Surgical History / Comment(s): reports that she also had D&C and pre-cancerous cells removed from cervix Past Anesthesia/Blood Transfusion Reactions: No Reported Reaction Past Psychological History: Anxiety, Bipolar, Depression Smoking Status: Never smoker Past Alcohol Use History: Heavy Additional Past Alcohol Use History / Comment(s): pt reports increasing use of alcohol; states that she drinks 2 - 3 days per week and has a bottle and a half of wine. Past Drug Use History: Marijuana Additional Drug Use History / Comment(s): pt denies current use, but states that she used edibles in the past; pt reports that she has not used marijuana since she went to the ER for overdose one year ago. Medications and Allergies Home Medications Medication Instructions Recorded Confirmed Type Citalopram Hydrobromide [CeleXA] 40 mg PO DAILY 11/26/15 04/10/21 History buPROPion XL [Wellbutrin XL] 150 mg PO DAILY 09/28/20 04/10/21 History Allergies Allergy/AdvReac Type Severity Reaction Status Date / Time No Known Allergies Allergy Verified 04/10/21 17:30 Physical Exam Vitals: Vital Signs Temp Pulse Resp BP 04/13/21 06:55 97.6 F 73 14 121/67 PHYSICAL EXAMINATION: Patient is lying in the bed comfortably, no acute distress, awake alert and oriented.. HEENT: Normocephalic. Neck is supple. Pupils reactive. Nostrils clear. Oral cavity is moist. Neck reveals no JVD, carotid bruits, or thyromegaly. CHEST EXAMINATION: Trachea is central. Symmetrical expansion. Lung rosales clear to auscultation and percussion. CARDIAC: Normal S1, S2 with no gallops. No murmurs ABDOMEN: Soft. Bowel sounds normal. No organomegaly. No abdominal bruits. Extremities: reveal no edema. No clubbing or cyanosis Neurologically awake, alert, oriented x3 with well-coordinated movements. No focal deficits noted Skin: No rash or skin lesions. Psychiatric: Coperative. Nonsuicidal Musculoskeletal: No joint swelling or deformity. Normal range of motion. Cranial Nerve Examination - Cranial Nerves Cranial Nerve I- Olfactory: Intact Cranial Nerve II- Optic: Intact Cranial Nerve III- Oculomotor: Intact Cranial Nerve IV- Trochlear: Intact Cranial Nerve V- Trigeminal: Intact Cranial Nerve - Abducens: Intact Cranial Nerve VII- Facial: Intact Cranial Nerve VIII- Auditory: Intact Cranial Nerve IX- Glossopharyngeal: Intact Cranial Nerve X- Vagus: Intact Cranial Nerve XI- Accessory: Intact Cranial Nerve XII- Hypoglossal: Intact Assessment and Plan Assessment: Acute suicide attempt with overdose. Altered mental status likely due to medication overdose. Improving now Anxiety/depression and bipolar disorder Prior Suicide attempt UDS is positive for opiates, oxycodone and tricyclic antidepressants Hypokalemia DVT prophylaxis with heparin subcu Plan: Patient will be continued on current psychiatric plan management. Patient is currently on Celexa. we will follow-up CBC and BMP. Further recommendations based on clinical course.
[2021-04-14 07:10] VITALS: BP 124/70; PULSE 79; RESP 16; TEMP 98
[2021-04-14] MEDS: CITALOPRAM HYDROBROMIDE 20 MG TAB PO SCH (08:23)
[2021-04-14] MEDS ORDERED: ARIPiprazole 5 MG TAB PO SCH (09:00)
--- NOTE | 2021-04-14 11:47 | P.DS ---
Providers Date of admission: 04/12/21 14:27 Expected date of discharge: 04/14/21 Attending physician: Ap Chaudhary MD Consults: 04/12/21 13:59 Consult Physician Routine Consulting Provider: Lavon Angulo Consult Reason/Comments: H&P and medical Do you want consulting provider notified?: Yes Primary care physician: Anita Eric - Discharge Diagnosis(es) (1) Major depressive disorder, recurrent severe without psychotic features Current Visit: Yes Status: Acute Priority: High (2) Alcohol abuse Current Visit: Yes Status: Chronic Priority: Medium (3) Cluster B personality disorder Current Visit: Yes Status: Chronic Priority: Medium Hospital Course: Admission HPI: Patient is a , unemployed, 45-year-old female who was admitted for suicidal ideation with attempt by intentional overdose. Patient presented to the hospital on 04/11/21, was brought to the emergency Department for altered mental status after the patient had an intentional overdose on Seroquel, pain medication, and alcohol. The patient was subsequently admitted to the medical floor and was stabilized. She was then transferred to the psychiatric unit for evaluation and treatment of worsening depression and suicidality. The patinet reports due to Covid restrictions and the nature of the pandemic her mental health began to decline. Upon admission to the unit, the patient reports that she is feeling much better has an understanding as to why she overdosed. The patient reports that she has been feeling increasingly depressed and anxious over the past year. She reports that this stems from her relationship with her . She states that she is no longer in love with her . Furthermore, the patient does report that over the past year she has had low self-esteem, inability to regulate her mood, and self harming urges. She does report that she has previously attempted suicide in the past by overdose 1 year ago. Prior to her presentation to this hospital, the patient was on a regimen of Celexa and Wellbutrin. She was tolerating days medications well but reports that she has no significant improvement in regards to her mood and anxiety. The patient does not endorse any significant history of psychosis. She reports no history of auditory or visual hallucinations. She reports no paranoia or other delusions. He does report that she has had some erotomanic fantasies but states that she is never acted on them or had them actually play out so as to interfere with her daily living. She reports no significant history of bipolar disorder. She denies any manic episodes. Patient states that she has a history of depression and anxiety and is open with [facility]. The patient is currently on a regimen of Celexa and Wellbutrin. She has also previously trialed Seroquel. The patient does report multiple psychiatric hospitalizations in the distant past. She does report that she attempted suicide 1 year ago. Hospital course: Upon admission to the unit patient was initially presenting well and remorseful for her overdose. Patient was however directable and agreeable to commence treatment. Patient got along well with other patients on the unit and followed unit protocol. Patient was compliant with the medications and denied any side effects throughout hospital course. Patient was started on Celexa and Abilify was added to her regimen. Wellbutrin was discontinued as the Wellbutrin likely contributed to elevated anxiety. Patient spoke of her stressors and engaged in therapy both group and individual. Patient was also seen by medical team for history and physical exam. After review of the patient's history and the psychiatric interview, it was determined that the patient does have cluster B personality traits and a significant history of PTSD. This provider discussed with patient at length the diagnosis as well as appropriate therapy and coping skills for management of this disorder. Over the course of hospitalization, the patient significantly improved in regards to her mood, sleep, he joined patient, insight, and judgment. On the day of discharge, the patient is not reporting any suicidal or homicidal ideation, intention, and/or plan. She is not reporting auditory or visual hallucinations. She is denying any access to firearms or any other weapons. The patient is presenting with future- orientation and is excited to see her daughter go to school. The patient does have a significant history of alcohol use however was counseled on abstaining from all substances including alcohol and marijuana. The patient was counseled on her medications and the risks, benefits, and treatment alternatives. The patient was encouraged to take her medications and to follow-up with outpatient appointments for primary care and for mental health. Prior to discharge, family meeting will be arranged by director of social work to answer any questions and ensure safety. Mental status exam: General Appearance: Patient appears to be stated age is alert, pleasant, and cooperative. Patient is in no acute distress and has fair hygiene and grooming Behavior: Patient is calmly seated without any agitated behavior. Speech: Patient's speech is fluent and nonpressured. Mood/Affect: Patient reports their mood is "much better", affect is congruent and euthymic to bright. Suicidality/Homicidality: Patient denies having any suicidal or homicidal ideation intent or plan. Perceptions: Patient denies any auditory or visual hallucinations. Though content/process: There is no evidence of any delusional thought content and thought process is linear and goal-directed. The patient is future oriented. Memory and concentration: AOX3, grossly intact for the purposes of this session. Can spell "WORLD" backwards correctly. Judgment and insight: Improved with guarded prognosis Vital Signs Temp 98 F 04/14/21 07:00 Pulse 79 04/14/21 07:00 Resp 16 04/14/21 07:00 BP 124/70 04/14/21 07:00 Pulse Ox 98 04/12/21 14:30 Impression: Major depressive disorder, recurrent, severe Cluster B personality disorder Posttraumatic stress disorder Alcohol use disorder Plan: -Continue with discharge today as patient has improved and stabilized psychiatrically and is not currently an imminent threat to herself and/or others. Patient will remain at chronically elevated risk for harm to self and/or others due to her alcohol abuse. -Continue medications: Celexa 40 mg by mouth daily for depression/anxiety Abilify 5 mg by mouth daily for mood augmentation/stabilization -Patient was counseled on the need for medication compliance and appropriate follow-up at mental health and also primary care for medical issues. Patient verbalized understanding and agreed. -Social work to arrange for and conduct family meeting to ensure safety upon discharge and answer any questions/concerns. Social work also to arrange for patients follow up appointments [facility] for psychiatric care along with follow up with primary care provider. -Patient counseled on abstaining from recreational drugs and marijuana and alcohol. Was informed/educated on the adverse effects on their physical and mental health. Patient verbally agreed and understood. Patient was offered substance abuse treatment however declined at this time. -Patient was instructed to return to the hospital or seek immediate medical care if their psychiatric or medical symptoms do worsen or reoccur. -Psychoeducation and supportive therapy provided to patient. Risks and benefits of pharmacological treatment versus the risks and benefits of nontreatment weight and discussed. Informed consent discussion held. Common side effects of psychotropics discussed such as, but not limited to headache, GI disturbance, sexual dysfunction, movement disorders, sedation, and orthostatic hypotension. Life threatening and blackbox warnings of prescribed medications also discussed. Potential risks of operating a vehicle or heavy machinery discussed with patient at length. Advised on importance of compliance and a reliable and responsible manner. Patient advised to review FDA consumer labeling of all medications prior to taking. Patient verbalized understanding of potential risks, and agrees with current treatment plan. Patient advised to medically contact physician/emergency personnel if any acute changes in condition occur. Laboratory Results Estimated Ave Glu mg/dL 80 04/10/21 15:56 Hemoglobin A1c 4.4 % (4.0-6.0) 04/10/21 15:56 Triglycerides 63.0 mg/dL (0.0-149.0) 04/10/21 15:56 Cholesterol 176 mg/dL (0-200) 04/10/21 15:56 LDL Cholesterol, Calc 104.4 mg/dL (0.0-131.0) 04/10/21 15:56 VLDL Cholesterol, Calc 12.60 mg/dL (5.00-40.00) 04/10/21 15:56 HDL Cholesterol 59.0 mg/dL (40.0-60.0) 04/10/21 15:56 Cholesterol/HDL Ratio 2.98 04/10/21 15:56 TSH 0.867 mIU/L (0.465-4.680) 04/10/21 15:56 Allergies Allergy/AdvReac Type Severity Reaction Status Date / Time No Known Allergies Allergy Verified 04/10/21 17:30 Patient Condition at Discharge: Stable Plan - Discharge Summary Discharge Rx Participant: No New Discharge Prescriptions: New ARIPiprazole [Abilify] 5 mg PO DAILY 30 Days tab Citalopram Hydrobromide [CeleXA] 40 mg PO DAILY 30 Days tab Discontinued Citalopram Hydrobromide [CeleXA] 40 mg PO DAILY buPROPion XL [Wellbutrin XL] 150 mg PO DAILY Discharge Medication List ARIPiprazole [Abilify] 5 mg PO DAILY 30 Days tab 04/14/21 [Rx] Citalopram Hydrobromide [CeleXA] 40 mg PO DAILY 30 Days tab 04/14/21 [Rx] Follow up Appointment(s)/Referral(s): Hernandez Plascencia [Outside] - 04/23/21 11:00 am ([place]a ) Patient Instructions/Handouts: Aripiprazole (By mouth), Mood Disorders (DC), Depression (DC), Suicide Prevention (DC) Activity/Diet/Wound Care/Special Instructions: Activity and diet as tolerated. Avoid the use of street drugs and alcohol. Take all medications as prescribed. When you are in need of refills on your medications please contact your medical provider and/or outpatient psychiatrist to have this done. Please go to scheduled outpatient appointment for aftercare treatment. If symptoms return or become worse, call the crisis line at and/or go to the nearest emergency room for evaluation. Discharge Disposition: HOME SELF-CARE
== END 2021-04-14 12:02 | disposition home or self-care (01) | DRG 885 ==
LOC: 3MHU 14:27
PROVIDERS: ADMIT Psychiatry & Neurology Psychiatry; ATTEND Psychiatry & Neurology Psychiatry
DX: F33.2 Major depressive disorder, recurrent severe without psychotic features (principal); F10.10 Alcohol abuse, uncomplicated; Z79.899 Other long term (current) drug therapy; Z91.5 Personal history of self-harm; F60.89 Other specific personality disorders; F43.10 Post-traumatic stress disorder, unspecified; F31.9 Bipolar disorder, unspecified
CPT/HCPCS: 36415; 70450; 71046; 72125; 80048; 80053; 80061; 80143; 80179; 80306; 80320; 81001; 82140; 82550; 83036; 84443; 84484; 85025; 85610; 85730; 87635; 93005

== ENCOUNTER → 2021-10-13 | Outpatient (CLI) | payer MEDICARE ==
--- NOTE | 2021-10-13 16:36 | XR ---
Left shoulder HISTORY: Left shoulder pain 3 views of the left shoulder Bone mineralization, joint spaces and alignment are maintained. Left lung apex as visualized is rolando l. There is overlying artifact. No fracture or dislocation. Distal acromion is slightly downturned. T here is arthropathy acromioclavicular joint. Sclerotic focus seen at the level of the bony glenoid ma y represent bone island on the internal rotation view. IMPRESSION: Correlate for impingement. Additional findings above. Shoulder MRI may be of benefit.
== END | disposition home or self-care (01) ==
LOC: RADXRYALE 16:17
PROVIDERS: ATTEND Internal Medicine
DX: M25.512 Pain in left shoulder (principal)

== ENCOUNTER → 2021-11-23 | Outpatient (CLI) | payer MEDICARE ==
[2021-11-23 18:45] LABS: Basophils # (A) 0.05 X 10*3/uL (0.00-0.10); Basophils % (A) 0.9 %; Eosinophils # (A) 0.19 X 10*3/uL (0.04-0.35); Eosinophils % (A) 3.6 %; HGB 12.7 g/dL (12.0-15.0); Immature Grans, Automated 0.2 %; Lymphocytes # (A) 1.92 X 10*3/uL (0.90-5.00); MCH 30.5 pg (27.0-32.0); MCHC 32.6 g/dL (32.0-37.0); MCV 93.5 fL (80.0-97.0); Mean Platelet Volume 11.4 fL (9.5-12.2); Monocytes # (A) 0.37 X 10*3/uL (0.20-1.00); Monocytes % (A) 6.9 %; NRBC Per 100 WBC 0 /100 WBCS (0.0-0.0); Neutrophils # (A) 2.79 X 10*3/uL (1.80-7.70); Neutrophils % (A) 52.4 %; Platelet Count 198 X 10*3/uL (140-440); RBC 4.17 X 10*6/uL (4.10-5.20); RDW 12.2 % (11.5-14.5); WBC 5.33 X 10*3/uL (4.50-10.00)
[2021-11-23 18:48] LABS: Anion Gap 9.5 mmol/L (10.00-18.00); Carbon Dioxide 24.5 mmol/L (20.0-27.5); Potassium 4.2 mmol/L (3.5-5.5)
== END | disposition home or self-care (01) ==
LOC: LABPAT 11:40
PROVIDERS: ATTEND Orthopaedic Surgery
DX: Z01.812 Encounter for preprocedural laboratory examination (principal); M75.42 Impingement syndrome of left shoulder
CPT/HCPCS: 80051; 85025

== ENCOUNTER 2021-12-02 07:04 | Day surgery (SDC) | payer MEDICARE ==
[2021-11-30 15:43] VITALS: BMI 28.7
--- NOTE | 2021-12-01 14:10 | HP ---
HISTORY AND PHYSICAL DATE OF SURGERY: 12/02/2021 Rajni Martinez is a 46-year-old patient seen with progressive left shoulder pain. We discussed options for treatment. She elected to proceed with left shoulder arthroscopy. Consent was obtained. PAST MEDICAL HISTORY: Noncontributory. PAST SURGICAL HISTORY: Excision of cyst, knee arthroscopy. DAILY MEDICATIONS: Celexa, Aleve, Naprosyn. ALLERGIES: NONE. SOCIAL HISTORY: She denies tobacco use. PHYSICAL EVALUATION OF THE LEFT SHOULDER: Flexion is 90 degrees. Abduction is 30 degrees. External rotation is zero degrees with significant weakness. There is tenderness along the anterolateral acromion and rotator cuff insertion site. Impingement is positive at 70 degrees. Drop-arm sign is positive. Cross-body adduction sign is positive. Distal neurovascular exam intact. Radiographs of the left shoulder: Type 2 acromion, evidence for acromioclavicular joint osteoarthritis. MRI left shoulder: Partial rotator cuff tear and acromioclavicular joint osteoarthritis. IMPRESSION: 1. Left shoulder impingement with partial rotator cuff tear. 2. Left shoulder acromioclavicular joint osteoarthritis. PLAN: Left shoulder arthroscopy with subacromial decompression, possible arthroscopic rotator cuff repair, Juliet procedure and debridement. MMODL / IJN: [id number] /
[~2021-12-02 07:04] MED LIST changes: +DEXAMETHASONE SOD PHOSPHATE 4 MG/ML 1 ML VIAL IV ONE; -DEXAMETHASONE SOD PHOSPHATE 4 MG/ML 1 ML VIAL IV PRN; +HYDROmorphone 0.5 MG/0.5 ML SYRINGE IVP PRN; -LIDOCAINE 1% (10MG/ML) FOR IV START INTRADERMA PRN; +ONDANSETRON 4 MG/2 ML VIAL IVP ONE; -ONDANSETRON 4 MG/2 ML VIAL IVP PRN
[2021-12-02] MEDS ORDERED: LACTATED RINGERS 1,000 ML IV SCH (07:13)
[2021-12-02] MEDS ORDERED: LIDOCAINE 1% (10MG/ML) FOR IV START INTRADERMA ONE (07:38)
[2021-12-02] MEDS ORDERED: ONDANSETRON 4 MG/2 ML VIAL ONE (07:46)
[2021-12-02] MEDS ORDERED: ONDANSETRON 4 MG/2 ML VIAL IVP ONE ×2 (07:47)
[2021-12-02] MEDS ORDERED: DEXAMETHASONE SOD PHOSPHATE 4 MG/ML 1 ML VIAL IVP ONE ×2 (07:47→07:48)
[2021-12-02] MEDS ORDERED: MIDAZOLAM 2 MG/2 ML VIAL IVP ONE (07:55)
[2021-12-02] MEDS ORDERED: DEXAMETHASONE SOD PHOSPHATE 4 MG/ML 1 ML VIAL ONE (09:16)
[2021-12-02] MEDS ORDERED: LIDOCAINE 1% INJ 10MG/ML (20 ML MDV) ONE (09:16)
[2021-12-02] MEDS ORDERED: fentaNYL (PF) 50 MCG/ML 2 ML AMP ONE (09:16)
[2021-12-02] MEDS ORDERED: MIDAZOLAM 2 MG/2 ML VIAL ONE (09:16)
[2021-12-02] MEDS ORDERED: SUCCINYLCHOLINE CHLORIDE 100 MG/5 ML SYR IV ONE (09:16)
[2021-12-02] MEDS ORDERED: ROPIVACAINE 5 MG/ML 30 ML VIAL ONE (09:16)
[2021-12-02] MEDS ORDERED: PROPOFOL 10 MG/ML 20 ML VIAL IV ONE (09:16)
[2021-12-02] MEDS ORDERED: LACTATED RINGERS 1,000 ML IV ONE (10:17)
--- NOTE | 2021-12-02 10:38 | P.OP ---
Date of Procedure: 12/02/21 Preoperative Diagnosis: Left shoulder impingement Postoperative Diagnosis: 1. Left shoulder rotator cuff tear 2. Left shoulder impingement Procedure(s) Performed: 1. Left shoulder arthroscopic rotator cuff repair 2. Left shoulder arthroscopic subacromial decompression Implants: 14.75 Arthrex swivel lock anchor Anesthesia: GETA, regional (Interscalene block) Surgeon: Bryson Fitzgerald [employer] #1: Leonard Egan Estimated Blood Loss (ml): 7 Pathology: none sent Condition: stable Disposition: PACU Indications for Procedure: 46-year-old patient seen with progressive left shoulder pain. After treatment options were discussed, she elected to proceed with arthroscopy. Operative Findings: See description of procedure Description of Procedure: Patient underwent an interscalene block by department of anesthesia. The patient was then taken to the operative suite. The patient underwent a general anesthetic by the department of anesthesia. The patient was placed into a lateral position and secured. There was appropriate padding of the bony prominence. Left shoulder was then prepped and draped in normal sterile orthopedic fashion. We placed the extremity in 10 pounds of longitudinal traction. A posterior incision was now made for a posterior working portal site. The trocar and cannula were inserted into the glenohumeral joint. Arthroscopy was initiated. Spinal needle was now inserted anteriorly, to ascertain the anterior working portal site. An incision was now made in that area, a trocar was inserted followed by a probe. The labrum was probed and was found to be stable. The biceps anchor and biceps tendon were both stable. There was no significant chondromalacia present. Instruments were now removed from the glenohumeral joint. Utilizing the posterior working portal site, the trocar and cannula were inserted into the subacromial space. Arthroscopy initiated. I made an incision 2 fingerbreadths lateral to the acromion. I introduced my trocar followed by my ArthroCare ablator. I now began ablating thick subacromial bursal tissue, which exposed the undersurface of the anterior acromion. There was diminished subacromial space. There was a very prominent anterior acromion. A motorized bur was introduced and a subacromial decompression was performed. I also excised some osteophytes off the inferior aspect of the distal clavicle. The AC joint was visualized and noted to be moderately arthritic, I did not think enough to warrant a Juliet procedure. I now turned my attention to the rotator cuff tendon. There was significant partial tearing along the distal supraspinatus area. Upon probing the area there was a full-thickness perforation present. I debrided the margins getting down to stable tendon tissue. I abraded the footprint with a motorized bur. With the assistance of Nabil ESCOBAR I passed 2 everted mattress sutures through good bites of rotator cuff tendon. I now punched hole in the footprint area for insertion of an anchor. All 4 limbs of suture were now passed through the eyelet of a 4.75 Arthrex swivel lock anchor. I placed the eyelet into the pre-punched hole. I held it in position while Nabil ESCOBAR tensioned all 4 suture limbs and deployed anchor with good fixation noted. All residual suture limbs were now clipped. We had good compression of the tendon along the entire footprint. Instruments now removed from the portal sites. All portal sites were approximated with nylon suture. Sterile dressings were applied followed by a shoulder immobilizer. Leonard ESCOBAR assisted in this case. The patient was awakened, transferred to a bed, and taken to recovery in stable condition.
[2021-12-02 10:50] VITALS: TEMP 97.8
[2021-12-02 10:59] VITALS: RESP 16
[2021-12-02 12:12] VITALS: BP 121/77; PULSE 77
--- NOTE | 2021-12-02 20:15 | P.ANPRN ---
Procedure Note - Anesthesia - Nerve Block Performed Left Interscalene Single Time Out Performed: Yes Date of Procedure: 12/02/21 Procedure Start Time: :10 Procedure Stop Time: :19 Location of Patient: PreOp Indication: Acute Post-Operative Pain, Dx/Pain Location, Requested by Surgeon Specifically requested for management of pain by : Bryson Fitzgerald Sedation Type: Sedate with meaningful contact maintained Preparation: Sterile Prep Position: Supine Catheter: None Needle Types: Facet Needle Gauge: 20 Ultrasound used to visualize needle placement: Yes Ultrasound used to observe medication spread: Yes Injectate: 0.5% Ropivacaine (see comment for volume) Blood Aspirated: No Pain Paresthesia on Injection Noted: No Resistance on Injection: Normal Image Stored and Saved: Yes Events: Uneventful and Well Tolerated (20cc)
== END 2021-12-02 12:27 | disposition home or self-care (01) ==
LOC: OR 07:04
PROVIDERS: ATTEND Orthopaedic Surgery
DX: M75.102 Unspecified rotator cuff tear or rupture of left shoulder, not specified as traumatic (principal); M25.712 Osteophyte, left shoulder; M25.811 Other specified joint disorders, right shoulder; Z98.890 Other specified postprocedural states; Z98.1 Arthrodesis status; Z79.1 Long term (current) use of non-steroidal anti-inflammatories (NSAID); Z79.899 Other long term (current) drug therapy
CPT/HCPCS: 64415; 76942; 29826; 29827; C1713; J2250; J1100; J0690; J2405; J2001; J3010; J2795; J0330; J2704